=== PATIENT | male | born 2000 | race Two or more races ===

== ENCOUNTER 2020-08-05 03:52 | Emergency (ER) | payer BC ==
[~2020-08-05] VITALS: Ht 185.4 cm; Wt 65.5 kg
[2020-08-05] MEDS ORDERED: DIPHENHYDRAMINE 50 MG/ML, 1ML ONE (04:18)
[2020-08-05] MEDS ORDERED: methylPREDNISolone SOD SUCC 40 MG/ML ONE (04:18)
[2020-08-05 04:30] VITALS: BP 116/74
[2020-08-05] MEDS ORDERED: DIPHENHYDRAMINE 50 MG/ML, 1ML IVPush ONE (04:30)
[2020-08-05] MEDS ORDERED: methylPREDNISolone SOD SUCC 125 MG/2 ML IVPush ONE (04:30)
--- NOTE | 2020-08-05 04:30 | NUR ---
Pt came in after eating a mixture of nuts and seeds and had a gernalized reaction of hives and lip swelling, pt able to speak in full sentences, no wheezing heard, 99% on RA, no increased work of breathing noted. Friend at bedside, IV started, WCTM
== END 2020-08-05 05:07 | disposition home or self-care (01) ==
LOC: ED 05:05
DX: L50.0 Allergic urticaria (principal)
CPT/HCPCS: 96374; 96375; 99284; J1200; J2930

== ENCOUNTER 2020-11-18 21:44 | Emergency (ER) | payer BC ==
[~2020-11-18] VITALS: Ht 185.4 cm; Wt 64.1 kg
[2020-11-18 21:50] VITALS: BP 112/62
[2020-11-18] MEDS ORDERED: FAMOTIDINE 20 MG TABLET PO ONE (22:00)
[2020-11-18] MEDS ORDERED: DIPHENHYDRAMINE 25 MG CAPSULE PO ONE (22:00)
[2020-11-18] MEDS ORDERED: DEXAMETHASONE 4 MG TABLET PO ONE (22:00)
--- NOTE | 2020-11-18 22:23 | NUR ---
pt signed out ama at reg desk
== END 2020-11-18 22:24 | disposition left against medical advice (07) ==
LOC: ED 22:00
DX: T78.40XA Allergy, unspecified, initial encounter (principal)
CPT/HCPCS: 99281